=== PATIENT | female | born 1965 | race Asian ===

== ENCOUNTER 2018-07-04 08:58 | Emergency (ER) | payer OTHER ==
[2018-07-04] MEDS ORDERED: ONDANSETRON 4 MG/2 ML VIAL IVP STA (09:35)
[2018-07-04] MEDS ORDERED: SODIUM CHLORIDE 0.9% 1,000 ML IV ONE (09:35)
[2018-07-04 10:11] LABS: BASOPHILS # (AUTO) 0.1 10^3/uL (0.0-0.1); BASOPHILS % (AUTO) 1.3 %; EOSINOPHILS # (AUTO) 0.1 10^3/uL (0.0-0.7); EOSINOPHILS % (AUTO) 0.8 %; LYMPHOCYTES # (AUTO) 1.2 10^3/uL (1.5-3.5); LYMPHOCYTES % (AUTO) 12.7 %; MEAN CORPUSCULAR HEMOGLOBIN 30.4 pg (27.0-31.0); MEAN CORPUSCULAR HGB CONC 33.7 g/dL (32.0-36.0); MEAN CORPUSCULAR VOLUME 90.3 fL (81.0-99.0); MONOCYTES # (AUTO) 0.6 10^3/uL (0.0-1.0); MONOCYTES % (AUTO) 6.5 %; NEUTROPHILS # (AUTO) 7.4 10^3/uL (1.5-6.6); NEUTROPHILS % (AUTO) 78.7 %; PLT - PLATELET COUNT 302 10^3/uL (130-450); RED BLOOD COUNT 4.62 10^6/uL (4.20-5.40); RED CELL DISTRIBUTION WIDTH 12.8 % (12.0-15.0); WHITE BLOOD COUNT 9.3 x10^3/uL (4.8-10.8)
[2018-07-04 10:55] LABS: ALBUMIN 4.2 g/dL (3.2-5.5); ALBUMIN/GLOBULIN RATIO 0.9 (1.0-2.2); BILIRUBIN,TOTAL 0.6 mg/dL (0.2-1.0); CALCIUM 9.4 mg/dL (8.5-10.3); CREATININE 0.6 mg/dL (0.4-1.0); TOTAL PROTEIN 8.7 g/dL (6.7-8.2)
--- NOTE | 2018-07-04 11:51 | ED Physician Documentation ---
PD HPI ABD PAIN - Stated complaint Stated Complaint: N/D - Chief complaint Chief Complaint: Abd Pain - Additional information Additional information: 53-year-old female presents the emergency department with diarrhea which has been volume is over the past 24 hours and an episode of vomiting. The patient reports intermittent episodes of abdominal cramping associated with diarrhea. The patient denies any ongoing or focal abdominal pain. The patient denies fevers or blood in the vomit or stools. The patient recently finished a course of an antibiotic for leg infection. No other associated symptoms. No relieving factors. Review of Systems Constitutional: denies: Fever, Chills Eyes: denies: Discharge Ears: denies: Ear pain Nose: denies: Congestion Throat: denies: Sore throat Cardiac: denies: Chest pain / pressure GI: reports: Abdominal Pain, Nausea, Vomiting, Diarrhea : denies: Dysuria Skin: denies: Rash Musculoskeletal: denies: Neck pain Neurologic: reports: Generalized weakness PD PAST MEDICAL HISTORY - Past Medical History Past Medical History: No Cardiovascular: Hypertension Respiratory: None Neuro: None Endocrine/Autoimmune: None GI: None CLINICAL TRIAL HEAD: Other : None HEENT: None Psych: None Derm: None 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 - Past Surgical History Past Surgical History: No - Present Medications Home Medications: Ambulatory Orders Medication Instructions Recorded Confirmed Aspirin Chewable [St Magen 81 mg PO DAILY 07/04/18 07/04/18 Aspirin] Metronidazole [Flagyl] 500 mg PO TID #30 tablet 07/04/18 Ondansetron Odt [Zofran] 4 mg TL Q6H PRN #30 tablet 07/04/18 Telmisartan [Micardis] 80 mg PO DAILY 07/04/18 07/04/18 - Allergies Allergies/Adverse Reactions: Allergies Allergy/AdvReac Type Severity Reaction Status Date / Time No Known Drug Allergies Allergy Verified 07/04/18 09:18 - Social History Does the pt smoke?: No Smoking Status: Never smoker PD ED PE NORMAL - General General: Alert and oriented X 3, No acute distress - HEENT HEENT: Atraumatic, PERRL, EOMI, Ears normal - Cardiac Cardiac: RRR, Strong equal pulses - Respiratory Respiratory: No respiratory distress, Clear bilaterally - Abdomen Abdomen: Soft, Non tender, Non distended - Derm Derm: Normal color - Extremities Extremities: No deformity - Neuro Neuro: Alert and oriented X 3, Normal speech - Psych Psych: Normal affect Results - Vitals Vitals: Vital Signs - 24 hr 07/04/18 07/04/18 07/04/18 09:16 11:10 11:43 Temperature 36.5 C 36.6 C Heart Rate 89 82 78 Respiratory 14 17 12 Rate Blood Pressure 129/72 119/74 124/70 O2 Saturation 95 99 100 07/04/18 13:17 Temperature 36.7 C Heart Rate 79 Respiratory 15 Rate Blood Pressure 120/71 O2 Saturation 99 Oxygen O2 Source Room air - Labs Labs: Laboratory Tests 07/04/18 07/04/18 07/04/18 10:00 10:00 10:30 WBC 9.3 RBC 4.62 Hgb 14.0 Hct 41.7 MCV 90.3 MCH 30.4 MCHC 33.7 RDW 12.8 Plt Count 302 MPV 8.0 Neut # (Auto) 7.4 H Lymph # (Auto) 1.2 L Heard # (Auto) 0.6 Eos # (Auto) 0.1 Baso # (Auto) 0.1 Absolute Nucleated RBC 0.00 Nucleated RBC % 0.0 Sodium 138 Potassium 3.4 L Chloride 101 Carbon Dioxide 25 Anion Gap 12.0 BUN 17 Creatinine 0.6 Estimated GFR (MDRD) 104 Glucose 169 H Calcium 9.4 Total Bilirubin 0.6 AST 29 ALT 33 Alkaline Phosphatase 98 Total Protein 8.7 H Albumin 4.2 Globulin 4.5 H Albumin/Globulin Ratio 0.9 L Lipase 23 Urine Color Urine Clarity Urine pH Ur Specific [place] Urine Protein Urine Glucose (UA) Urine Ketones Urine Occult Blood Urine Nitrite Urine Bilirubin Urine Urobilinogen Ur Leukocyte Esterase Ur Microscopic Review Urine Culture Comments C. difficile Tox B Gene POSITIVE A* 07/04/18 11:38 WBC RBC Hgb Hct MCV MCH MCHC RDW Plt Count MPV Neut # (Auto) Lymph # (Auto) Heard # (Auto) Eos # (Auto) Baso # (Auto) Absolute Nucleated RBC Nucleated RBC % Sodium Potassium Chloride Carbon Dioxide Anion Gap BUN Creatinine Estimated GFR (MDRD) Glucose Calcium Total Bilirubin AST ALT Alkaline Phosphatase Total Protein Albumin Globulin Albumin/Globulin Ratio Lipase Urine Color YELLOW Urine Clarity CLEAR Urine pH 6.5 Ur Specific [place] 1.015 Urine Protein TRACE Urine Glucose (UA) NEGATIVE Urine Ketones NEGATIVE Urine Occult Blood NEGATIVE Urine Nitrite NEGATIVE Urine Bilirubin NEGATIVE Urine Urobilinogen 0.2 (NORMAL) Ur Leukocyte Esterase NEGATIVE Ur Microscopic Review NOT INDICATED Urine Culture Comments NOT INDICATED C. difficile Tox B Gene PD MEDICAL DECISION MAKING - ED course ED course: On reevaluation the patient is resting comfortably her symptoms are under control. The patient does appear to have C. difficile from the recent antibiotic usage. The patient currently appears appropriate for discharge with oral therapy. The patient has no ongoing focal abdominal pain. I discussed the patient warning signs and recommended returning to the emergency department immediately for any worsening or any concerns. The patient will otherwise follow-up with primary care for recheck and reevaluation. Departure - Departure Disposition: Home, Self Care Clinical Impression: Clostridium difficile colitis Diarrhea Qualifiers: Diarrhea type: infectious Qualified Code(s): A09 - Infectious gastroenteritis and colitis, unspecified Condition: Good Instructions: Clostridium Difficile Infec Follow-Up: KAMILLE DAVIS [Primary Care Provider] - Within 1 week Prescriptions: Metronidazole [Flagyl] 500 mg PO TID #30 tablet Ondansetron Odt [Zofran] 4 mg TL Q6H PRN #30 tablet PRN Reason: Nausea / Vomiting Comments: Please return to the emergency department for any worsening or any concerns Forms: Activity restrictions
[2018-07-04 12:05] LABS: BILIRUBIN,URINE NEGATIVE (NEGATIVE); GLUCOSE, URINE (UA) NEGATIVE (NEGATIVE); KETONES,URINE (UA) NEGATIVE (NEGATIVE); LEUKOCYTE ESTERASE, URINE NEGATIVE (NEGATIVE); NITRITE,URINE NEGATIVE (NEGATIVE); OCCULT BLOOD,URINE NEGATIVE (NEGATIVE); PH,URINE 6.5 PH (5.0-7.5); PROTEIN,URINE TRACE mg/dL (NEGATIVE); UROBILINOGEN,URINE 0.2 (NORMAL) E.U./dL (NORMAL)
[2018-07-04 12:15] LABS: CLARITY,URINE CLEAR (CLEAR)
[2018-07-04 13:17] VITALS: BP 120/71
[2018-07-04] MEDS ORDERED: metroNIDAZOLE 250 MG TABLET PO STA (14:06)
== END 2018-07-04 14:15 | disposition home or self-care (01) ==
LOC: ED 08:58
DX: A04.72 Enterocolitis due to Clostridium difficile, not specified as recurrent (principal); I10 Essential (primary) hypertension
CPT/HCPCS: 36415; 80053; 81001; 81003; 83690; 85025; 87086; 87493; 96374; 99283; 99284

== ENCOUNTER 2018-08-30 11:57 | Outpatient (CLI) | payer OTHER ==
--- NOTE | 2018-08-31 18:56 | MRI Report ---
Reason: PAIN IN UNSPECIFIED ANKLE AND JOINTS OF UNSPEFICIE Procedure Date: 08/30/2018 Accession Number: [id number] / [id number] Procedure: MRI - Ankle LT W/O CPT Code: FULL RESULT: EXAM: LEFT ANKLE/HINDFOOT MRI WITHOUT CONTRAST EXAM DATE: 08/30/2018 02:36 PM. CLINICAL HISTORY: Lateral ankle pain and swelling. No specific injury. No prior surgery. COMPARISON: None. TECHNIQUE: Multiplanar, multisequence T1-weighted and fluid-sensitive sequences of the ankle/hindfoot without contrast. Other: None. FINDINGS: Bones: Moderate tibiotalar osteoarthritis is most pronounced anteriorly where there is subchondral marrow edema in the anterior tibial plafond and marginal osteophytes along both the anterior and posterior margins of both sides of the joint. There is also mild to moderate osteoarthritis at the calcaneocuboid joint with subchondral cysts and marrow edema in the anterior process of the calcaneus at this articulation. Osseous structures elsewhere are unremarkable. Ligaments: Increased signal at the fibular attachment of the anterior talofibular ligament consistent with sequela of partial tear. The ligament is contiguous and complete disruption is not present. The remaining lateral ankle ligaments are intact. The deep and superficial deltoid and spring ligaments are intact. Anterior Tendons: Minimal tenosynovitis of the extensor digitorum longus tendons without tendon tear. The tibialis anterior and extensor hallucis longus tendons are normal. Medial Tendons: Moderate tenosynovitis of the tibialis posterior with mild increased signal in the distal tibialis posterior tendon at the level of the medial pole of the navicular, tendinosis versus low-grade partial tear. The flexor digitorum longus and flexor hallucis longus tendons are normal. Lateral Tendons: The peroneus longus and peroneus brevis are intact. Achilles Tendon: The Achilles tendon is unremarkable. Musculature: No edema or fatty atrophy. Other: There is a large ankle joint effusion, likely related to the osteoarthritis, with mild synovitis. Questionable articular body along the anterior margin of the tibial plafond seen on series 501 image 12 measuring 6 mm. The contents of the sinus tarsi and tarsal tunnel are unremarkable. No plantar fasciitis. The subcutaneous tissues are unremarkable. IMPRESSION: 1. 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 Moderate tibiotalar joint effusion with synovitis is likely related to this. 2. Questionable 6 mm articular body currently located anterior to the tibial plafond. 3. Low-grade partial tear of the fibular attachment of the anterior talofibular ligament. 4. Mild calcaneocuboid osteoarthritis. 5. Tenosynovitis of the tibialis posterior with tendinosis versus low-grade partial tear of the distal tendon at the level of the medial pole of the navicular. 6. Minimal extensor digitorum longus tenosynovitis. RADIA
== END 2018-08-30 11:58 | disposition home or self-care (01) ==
LOC: DI 11:57
PROVIDERS: ATTEND Family Medicine
DX: M19.072 Primary osteoarthritis, left ankle and foot (principal); M25.472 Effusion, left ankle; S93.492A Sprain of other ligament of left ankle, initial encounter; M65.872 Other synovitis and tenosynovitis, left ankle and foot

== ENCOUNTER 2022-07-20 08:46 | Outpatient (CLI) | payer OTHER | END 2022-07-20 08:47 | disposition short-term general hospital (02) | LOC: EMS 08:46 | DX: R53.1 Weakness (principal); R11.0 Nausea; R42 Dizziness and giddiness | CPT/HCPCS: A0425; A0427 ==